=== PATIENT | female | born 1960 | race Caucasian/White ===

== ENCOUNTER 2020-09-21 16:44 | Emergency (ER) | payer SELFPAY ==
[2020-09-21 17:27] LABS: Absolute Lymphocytes (CBC) 1.2 K/uL (0.7-4.9); Basophils % 0.8 % (0-1.3); Hematocrit 41.7 % (36.0-45.0); Lymphocytes % 18.4 % (15.3-44.8); MPV 8.8 fL (7.6-11.3); RBC Red Blood Cell Count 4.44 M/uL (3.86-4.86)
[2020-09-21 17:33] LABS: Protime INR 1.02
[2020-09-21 17:50] LABS: ALT/SGPT 27 U/L (12-78); AST/SGOT 23 U/L (15-37); Albumin 4.2 g/dL (3.4-5.0); Alkaline Phosphatase 98 U/L (45-117); BUN Blood Urea Nitrogen 12 mg/dL (7-18); Bicarbonate 22 mmol/L (21-32); Bilirubin Direct 0.2 mg/dL (0-0.2); Bilirubin Total 0.6 mg/dL (0.2-1.0); Glucose Level 101 mg/dL (74-106); Potassium 3.4 mmol/L (3.5-5.1); Protein, Total 7.7 g/dL (6.4-8.2); Sodium Level 143 mmol/L (136-145)
[2020-09-21 17:57] LABS: Urine Blood NEGATIVE (NEG); Urine Glucose NEGATIVE (NEG); Urine Protein NEGATIVE (NEG); Urine Specific Gravity 1.015 (1.005-1.030)
[2020-09-21 18:02] LABS: Barbiturates NEGATIVE (NEGATIVE); Benzodiazepines NEGATIVE (NEGATIVE); Cocaine NEGATIVE (NEGATIVE); METHAMPHETAM NEGATIVE (NEGATIVE); Methadone NEGATIVE (NEGATIVE); Opiates NEGATIVE (NEGATIVE); Phencyclidine NEGATIVE (NEGATIVE); THC Cannibis NEGATIVE (NEGATIVE)
[2020-09-21] MEDS ORDERED: NA CHLORIDE 0.9% 1,000 ML ONE (18:23)
--- NOTE | 2020-09-21 18:27 | RAD REPORT ---
EXAM DESCRIPTION: CT - Head Brain Wo Cont - 09/21/2020 6:19 pm CLINICAL HISTORY: AMS, hallucinations COMPARISON: <Comparisons> TECHNIQUE: Axial 5 mm thick images of the head were obtained without IV contrast. All CT scans are performed using dose optimization technique as appropriate and may include automated exposure control or mA/KV adjustment according to patient size. FINDINGS: No intracranial hemorrhage, mass, edema or shift of mid-line structures. No acute infarcti on changes seen. No abnormal extra-axial fluid collections. Ventricles are normal. Mastoid air cells and visualized portions of the paranasal sinuses are clear. No acute bony findings. IMPRESSION: Negative non-contrast CT head examination.
[2020-09-21] MEDS ORDERED: HALOPERIDOL LACT 5 MG/ML INJ ONE (18:56)
[2020-09-21] MEDS ORDERED: LORazepam 2 MG/ML VIAL ONE (21:04)
[2020-09-22] MEDS ORDERED: LORazepam 2 MG/ML VIAL ONE (03:36)
--- NOTE | 2020-09-22 06:30 | EDPHYS ---
Physician Documentation [facility] Name: Rosanna Mg Age: 60 yrs Sex: Female : 1960 Arrival Date: 09/21/2020 Time: 16:53 Bed 15 Private MD: ED Physician Rafael Kathleen HPI: 09/21 16:54 This 60 yrs old Female presents to ER via Unassigned with complaints of rn Hallucination. 16:54 The patient presents to the emergency department with homicidal ideation, paranoia, rn psychosis, suicide ideation. Onset: The symptoms/episode began/occurred at an unknown time. Severity of symptoms: At their worst the symptoms were moderate in the emergency department the symptoms are unchanged. It is unknown whether or not the patient has had similar symptoms in the past. The patient has not recently seen a physician. Per EMS and mental health deputy report, patient walking outside in rain today, not wanting to talk to anybody, reported hallucinations with command hallucinations to kill "old people" and to kill herself. Bystander reported hx of bipolar disorder and schizophrenia but has never seen her act this bad. . Historical: - Allergies: 20:08 No Known Allergies; rr5 - Home Meds: 20:08 Propranolol Oral [Active]; quetiapine oral oral [Active]; levothyroxine oral [Active]; rr5 lamotrigine oral oral [Active]; Acyclovir Oral [Active]; - PMHx: 20:08 Bipolar disorder; rr5 - Immunization history:: Adult Immunizations unknown. - Social history:: Smoking status: unknown. - Family history:: not pertinent. - Hospitalizations: : No recent hospitalization is reported. ROS: 16:54 Constitutional: Negative for fever, chills, and weight loss, Eyes: Negative for injury, rn pain, redness, and discharge, Neck: Negative for injury, pain, and swelling, Cardiovascular: Negative for chest pain, palpitations, and edema, Respiratory: Negative for shortness of breath, cough, wheezing, and pleuritic chest pain, Abdomen/GI: Negative for abdominal pain, nausea, vomiting, diarrhea, and constipation, Back: Negative for injury and pain, MS/Extremity: Negative for injury and deformity, Skin: Negative for injury, rash, and discoloration, Neuro: Negative for headache, weakness, numbness, tingling, and seizure, Psych: Negative for depression, anxiety, + suicidal ideation and homicidal ideation, + command auditory hallucinations and paranoia Exam: 16:54 Constitutional: This is a well developed, well nourished patient who is awake, alert, rn + psychomotor agitation Head/Face: Normocephalic, atraumatic. Eyes: Pupils equal round and reactive to light, extra-ocular motions intact. Lids and lashes normal. Conjunctiva and sclera are non-icteric and not injected. Cornea within normal limits. Periorbital areas with no swelling, redness, or edema. ENT: dry MM Neck: Trachea midline, no masses palpated, and no cervical lymphadenopathy. Supple, full range of motion without nuchal rigidity, or vertebral point tenderness. No Meningismus. Cardiovascular: Regular rate and rhythm. No pulse deficits. Respiratory: No increased work of breathing, no retractions or nasal flaring. Abdomen/GI: Soft, non-tender Skin: Warm, dry MS/ Extremity: Pulses equal, no cyanosis. Neurovascular intact. Full, normal range of motion. Equal circumference. Neuro: Awake and alert, GCS 15, oriented to person, place, time, and situation. Cranial nerves II-XII grossly intact. Motor strength 5/5 in all extremities. Sensory grossly intact. Cerebellar exam normal. Psych: Awake, alert, fast speech, clear but jumps from idea to idea, somewhat redirectible, seems agitated. Vital Signs: 16:45 BP 118 / 80; Pulse 78; Resp 16; Temp 99.8(O); Pulse Ox 96% on R/A; Pain 0/10; vg1 19:00 BP 126 / 69 LA (auto/lg); Pulse 88 MON; Resp 22 S; Temp 99.0(O); Pulse Ox 100% on R/A; eb1 Pain 0/10; 20:00 BP 126 / 58 LA (auto/lg); Pulse 89 MON; Resp 20 S; Temp 98.0(O); Pulse Ox 98% on R/A; eb1 Pain 0/10; 22:00 BP 99 / 59 LA Supine (auto/lg); Pulse 90 MON; Resp 16 S; Temp 97.7(O); Pulse Ox 97% on eb1 R/A; Pain 0/10; 09/22 00:00 BP 127 / 69 LA Supine (auto/lg); Pulse 103 MON; Resp 16 S; Temp 97.8(TE); Pulse Ox 98% eb1 on R/A; Pain 0/10; 02:00 BP 126 / 88 LA Supine (auto/lg); Pulse 100 MON; Resp 20 S; Temp 98.1(T); Pulse Ox 98% eb1 on R/A; Pain 0/10; 03:32 BP 122 / 71; Pulse 105; Resp 16; Pulse Ox 99% ; rr5 04:00 BP 122 / 71 LA Supine (auto/lg); Pulse 91 MON; Resp 20 S; Pulse Ox 98% on R/A; Pain eb1 0/10; 10:04 BP 97 / 63; Pulse 96; Resp 17; Temp 98.0(TE); Pulse Ox 95% on R/A; mh5 14:38 BP 108 / 55; Pulse 97; Resp 18; Temp 98.2(O); Pulse Ox 95% on R/A; mh5 17:41 BP 102 / 60; Pulse 89; Resp 17; Temp 98.8(TE); Pulse Ox 95% on R/A; mh5 18:30 BP 100 / 58; Pulse 97; Resp 17; Temp 97.1(O); Pulse Ox 95% on R/A; mh5 09/23 02:50 BP 105 / 70; Pulse 90; Resp 16; Temp 97.8; Pulse Ox 99% ; rr5 06:00 BP 111 / 61; Pulse 90; Resp 18; Temp 98.5(O); Pulse Ox 99% on R/A; lp1 MDM: 09/21 16:53 Patient medically screened. rn 17:03 ED course: Will medically clear patient, has hx of psychiatric issues but report states rn hasn't been seen like this before. If no cause of delirium found, will obtain BRANDON and transfer for psychiatric facility. . 18:44 Differential diagnosis: psychosis secondary to non-compliance, delirium, schizophrenia, rn paranoia. Data reviewed: vital signs, nurses notes, lab test result(s), EKG, radiologic studies. ED course: Pt medically cleared, paging [facility] for evaluation. Pt more agitated at this time, haldol IM ordered and just given. Pt was trying to get out of bed and walking around room with pants and underwear half-down her legs. . 18:46 Transition of care: After a detail discussion of the patient's case, care is rn transferred to Jarad Cortes MD. 09/22 06:28 ED course: [facility] Psych gasateria attendant recommended inpatient psychiatric care. Patient mh7 resting comfortably, NAD, VSS.. 09/23 05:16 ED course: Resting comfortably, NAD, VSS. Very cooperative with staff.. mh7 12:20 ED course: Pt reevaluated by [facility], no longer endorses suicidal rn ideation or homicidal ideation, deemed safe for DC home by [facility], patient has been calm, stable vitals, and denies suicidal/homicidal ideation. Will dc home in care of family. . 09/21 16:54 Order name: Acetaminophen; Complete Time: 18:05 09/21 16:54 Order name: Basic Metabolic Panel; Complete Time: 18:05 09/21 16:54 Order name: CBC with Diff; Complete Time: 17:37 09/21 16:54 Order name: ETOH Level; Complete Time: 18:05 rn 09/21 16:54 Order name: Hepatic Function; Complete Time: 18:05 09/21 16:54 Order name: PT-INR; Complete Time: 17:37 rn 09/21 16:54 Order name: Ptt, Activated; Complete Time: 17:37 rn 09/21 16:54 Order name: Salicylate; Complete Time: 18:05 rn 09/21 16:54 Order name: Urine Drug Screen; Complete Time: 18:05 09/21 16:54 Order name: CT Head Brain wo Cont; Complete Time: 18:35 rn 09/21 16:54 Order name: AMMONIA; Complete Time: 18:05 rn 09/21 17:54 Order name: Urine Dipstick--Ancillary (enter results); Complete Time: 18:05 eb 09/21 23:37 Order name: SARS-COV-2 RT PCR; Complete Time: 07:26 EDMS 09/21 16:54 Order name: EKG; Complete Time: 16:54 rn 09/21 16:54 Order name: EKG - Nurse/Tech; Complete Time: 17:34 rn 09/21 16:54 Order name: IV Saline Lock; Complete Time: 17:19 rn 09/21 16:54 Order name: Labs collected and sent; Complete Time: 17:19 rn 09/21 16:54 Order name: Urine Dipstick-Ancillary (obtain specimen); Complete Time: 17:52 09/22 08:47 Order name: Diet Regular; Complete Time: 08:47 [facility] 09/22 11:50 Order name: Diet Regular; Complete Time: 11:52 [facility] 09/22 16:39 Order name: Diet Regular; Complete Time: 16:40 [facility] 09/23 06:54 Order name: Diet Regular; Complete Time: 06:55 [facility] 09/23 12:05 Order name: Diet Regular; Complete Time: 12:05 [facility] Administered Medications: 09/21 18:11 Drug: NS 0.9% 1000 ml Route: IV; Rate: 1000 ml; Site: right antecubital; ll1 19:30 Follow up: Response: No adverse reaction; IV Status: Completed infusion; IV Intake: rr5 1000ml 18:46 Drug: HALdol (as decanoate) 5 mg Route: IM; Site: left gluteus; ll1 19:00 Follow up: Response: No adverse reaction rr5 21:04 Drug: Ativan 1 mg Route: IVP; Site: right forearm; rr5 22:10 Follow up: Response: No adverse reaction 5 09/22 03:31 Drug: Ativan 1 mg Route: IVP; Site: right antecubital; rr5 06:33 Follow up: Response: No adverse reaction rr5 09/23 02:50 Drug: Tylenol 1000 mg Route: PO; rr5 04:06 Follow up: Response: No adverse reaction rr5 Disposition: 09/23/20 12:21 Discharged to Home. Impression: Coronavirus infection, unspecified, Altered mental status, unspecified. - Condition is Stable. - Discharge Instructions: Confusion, COVID-19. - Medication Reconciliation Form, Thank You Letter, Antibiotic Education, Prescription Opioid Use form. - Follow up: Private Physician; When: As needed; Reason: Recheck today's complaints, Re-evaluation by your physician. - Problem is new. - Symptoms have improved. Signatures: Dispatcher [employer] EDRafael Matute MD MD rn Roque, Raymond, RN RN rr5 Josie Rosario RN RN 1 Jarad Cortes MD MD 7 Aarti Aquino RN RN zb Corrections: (The following items were deleted from the chart) 12:09/22 06:29 09/22/2020 06:29 Transfer ordered to Other Acute Care Facility. Diagnosis rn is Psychosis; Homicidal Ideation; Suicidal Ideation. Reason for transfer: Higher level of care. Accepting physician is Psychiatry. Condition is Stable. Problem is an acute exacerbation. Symptoms are unchanged. [facility] 09/23 13:49 12:09/23/2020 12:21 Discharged to Home. Impression: Coronavirus infection, zb unspecified; Altered mental status, unspecified. Condition is Stable. Forms are Medication Reconciliation Form, Thank You Letter, Antibiotic Education, Prescription Opioid Use. Follow up: Private Physician; When: As needed; Reason: Recheck today's complaints, Re-evaluation by your physician. Problem is new. Symptoms have improved. rn
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
[2020-09-23] MEDS ORDERED: ACETAMINOPHEN 500 MG TAB ONE (02:20)
--- NOTE | 2020-09-23 07:36 | EKG ---
Test Date: 2020-09-21 Test Time: 17:32:28 [employer]: SRIDHAR MEASUREMENT RESULTS: Intervals: Rate: 80 AR: 150 QRSD: 78 QT: 408 QTc: 470 Rolla: P: 51 AR: 150 QRS: 35 T: 257 INTERPRETIVE STATEMENTS: Sinus rhythm with premature supraventricular complexes Cannot rule out Anterior infarct, age undetermined Abnormal ECG No previous ECG available for comparison Electronically Signed On 09-23-20 07:34:35 COLLEGE AND CAREER COUNSELOR by Slick Hermosillo
[2020-09-24 22:37] VITALS: O2SAT 99
[2020-09-24 22:38] VITALS: BP 111/61; TEMP 98.5
== END 2020-09-23 13:49 | disposition home or self-care (01) ==
LOC: ER 16:44
DX: U07.1 COVID-19 (principal); F31.9 Bipolar disorder, unspecified
CPT/HCPCS: 36415; 70450; 80048; 80076; 80307; 80320; 80329; 81003; 82140; 85025; 85610; 85730; 93005; 96372; 99285; J1630; J7030; U0003

== ENCOUNTER 2020-09-30 02:57 | Emergency (ER) | payer SELFPAY ==
[2020-09-30] MEDS ORDERED: LORAZEPAM 1 MG TABLET ONE (04:00)
[2020-09-30] MEDS ORDERED: HALOPERIDOL LACT 5 MG/ML INJ ONE (04:01)
--- NOTE | 2020-09-30 04:27 | EDPHYS ---
Physician Documentation [facility] Name: Rosanna Mg Age: 60 yrs Sex: Female : 1960 Arrival Date: 09/30/2020 Time: 02:58 Bed 18 Private MD: ED Physician Alexandro Clayton HPI: 09/30 06:12 This 60 yrs old Female presents to ER via Ambulatory with complaints of Psych tw4 Problem. 06:12 The patient presents to the emergency department with psychosis. Past psychiatric tw4 history: Prior diagnosis: bipolar disorder, Psychiatric medications include: Serzone. Associated signs and symptoms: The patient has no apparent associated signs or symptoms. Severity of symptoms: At their worst the symptoms were moderate in the emergency department the symptoms are unchanged. The patient has experienced a previous episode, last week. Historical: - Home Meds: 03:24 lamotrigine Oral [Active]; Acyclovir Oral [Active]; levothyroxine oral [Active]; dm5 Propranolol Oral [Active]; quetiapine Oral [Active]; - PMHx: 03:24 Bipolar disorder; dm5 - Immunization history:: Adult Immunizations up to date. - Social history:: Smoking status: unknown. ROS: 06:12 Constitutional: Negative for fever, chills, and weight loss, Eyes: Negative for injury, tw4 pain, redness, and discharge, Cardiovascular: Negative for chest pain, palpitations, and edema, Respiratory: Negative for shortness of breath, cough, wheezing, and pleuritic chest pain, Abdomen/GI: Negative for abdominal pain, nausea, vomiting, diarrhea, and constipation, Back: Negative for injury and pain, MS/Extremity: Negative for injury and deformity, Skin: Negative for injury, rash, and discoloration, Neuro: Negative for headache, weakness, numbness, tingling, and seizure. 06:12 Psych: Positive for judson. Exam: 06:12 Constitutional: This is a well developed, well nourished patient who is awake, alert, tw4 and in no acute distress. Head/Face: Normocephalic, atraumatic. Chest/axilla: Normal chest wall appearance and motion. Nontender with no deformity. No lesions are appreciated. Cardiovascular: Regular rate and rhythm with a normal S1 and S2. No gallops, murmurs, or rubs. Normal PMI, no JVD. No pulse deficits. Respiratory: Lungs have equal breath sounds bilaterally, clear to auscultation and percussion. No rales, rhonchi or wheezes noted. No increased work of breathing, no retractions or nasal flaring. Abdomen/GI: Soft, non-tender, with normal bowel sounds. No distension or tympany. No guarding or rebound. No evidence of tenderness throughout. Back: No spinal tenderness. No costovertebral tenderness. Full range of motion. Skin: Warm, dry with normal turgor. Normal color with no rashes, no lesions, and no evidence of cellulitis. MS/ Extremity: Pulses equal, no cyanosis. Neurovascular intact. Full, normal range of motion. 06:12 Psych: Behavior/mood is pleasant, cooperative, Affect is flat, Oriented to person, place, time, Patient has no thoughts/intents to harm self or others. Judgement / Insight is normal. Delusions/hallucinations are not present. Vital Signs: 04:05 BP 104 / 86; Pulse 92; Resp 22; Temp 98.4; Pulse Ox 98% on R/A; ll2 MDM: 03:01 Patient medically screened. tw4 06:12 Differential diagnosis: drug withdrawal. acute psychotic break. Data reviewed: vital tw4 signs, nurses notes. Data interpreted: Pulse oximetry: Interpretation: normal. Counseling: I had a detailed discussion with the patient and/or guardian regarding: the historical points, exam findings, and any diagnostic results supporting the discharge/admit diagnosis. Medication response: haldol. Special discussion: I discussed with the patient/guardian in detail that at this point there is no indication for admission to the hospital. It is understood, however, that if the symptoms persist or worsen the patient needs to return immediately for re-evaluation. Administered Medications: 03:52 Drug: HALdol 5 mg Route: IVP; Site: Other; ll2 04:38 Follow up: Response: No adverse reaction ll2 03:52 Drug: Ativan 1 mg Route: PO; ll2 04:38 Follow up: Response: No adverse reaction ll2 Disposition: 09/30/20 04:26 Discharged to Home. Impression: Unspecified psychosis not due to a substance or known physiological condition. - Condition is Stable. - Discharge Instructions: Psychosis. - Medication Reconciliation Form, Thank You Letter, Antibiotic Education, Prescription Opioid Use form. - Follow up: Private Physician; When: Upon discharge from the Emergency Department; Reason: Recheck today's complaints, Continuance of care, Re-evaluation by your physician. - Problem is new. - Symptoms have improved. Signatures: Lisset Mattson, RN RN dm5 Alexandro Clayton MD MD tw4 Shauna Medina RN RN ll2 Corrections: (The following items were deleted from the chart) 04:38 04:26 09/30/2020 04:26 Discharged to Home. Impression: Unspecified psychosis not due to ll2 a substance or known physiological condition. Condition is Stable. Forms are Medication Reconciliation Form, Thank You Letter, Antibiotic Education, Prescription Opioid Use. Follow up: Private Physician; When: Upon discharge from the Emergency Department; Reason: Recheck today's complaints, Continuance of care, Re-evaluation by your physician. Problem is new. Symptoms have improved. tw4
--- NOTE | 2020-09-30 04:27 | ER ---
Nurse's Notes [facility] Name: Rosanna Mg Age: 60 yrs Sex: Female : 1960 Arrival Date: 09/30/2020 Time: 02:58 Bed 18 Private MD: Diagnosis: Unspecified psychosis not due to a substance or known physiological condition Presentation: 09/30 03:18 Chief complaint: Spouse and/or significant other states: Pt is bipolar and seems to be dm5 going into a manic phase. This is a cycle that she goes through. Pt is COVID positive. Pt was seen here recently and per significant other we were able to "level her out" some so that she could hold a conversation and would not pace around the house. Coronavirus screen: Client reports previous positive COVID test result. Ebola Screen: Patient negative for fever greater than or equal to 101.5 degrees Fahrenheit, and additional compatible Ebola Virus Disease symptoms Patient denies exposure to infectious person. Patient denies travel to an Ebola-affected area in the 21 days before illness onset. No symptoms or risks identified at this time. Initial Sepsis Screen:. Risk Assessment: Do you want to hurt yourself or someone else? Patient reports no desire to harm self or others. Onset of symptoms was September 22, 2020. 03:18 Method Of Arrival: Ambulatory dm5 03:18 Acuity: JEANNIE 3 dm5 04:07 Initial Sepsis Screen: Does the patient meet any 2 criteria? No. Patient's initial ll2 sepsis screen is negative. Does the patient have a suspected source of infection? No. Patient's initial sepsis screen is negative. Historical: - Home Meds: 03:24 lamotrigine Oral [Active]; Acyclovir Oral [Active]; levothyroxine oral [Active]; dm5 Propranolol Oral [Active]; quetiapine Oral [Active]; - PMHx: 03:24 Bipolar disorder; dm5 - Immunization history:: Adult Immunizations up to date. - Social history:: Smoking status: unknown. Screenin:58 Abuse screen: Denies threats or abuse. Nutritional screening: No deficits noted. ll2 Tuberculosis screening: No symptoms or risk factors identified. Fall Risk None identified. Assessment: 03:15 General: Appears uncomfortable, Behavior is anxious, restless. Pain: Denies pain. ll2 Neuro: Level of Consciousness is awake, alert, confused. Cardiovascular: Patient's skin is warm and dry. Respiratory: Airway is patent Respiratory effort is even, unlabored, Respiratory pattern is regular, symmetrical. GI: No signs and/or symptoms were reported involving the gastrointestinal system. : No signs and/or symptoms were reported regarding the genitourinary system. EENT: No signs and/or symptoms were reported regarding the EENT system. Derm: Skin is intact, is healthy with good turgor, Skin is pink, warm \\T\\ dry. Musculoskeletal: Circulation, motion, and sensation intact. Range of motion: intact in all extremities. 04:07 Reassessment: Patient and/or family updated on plan of care and expected duration. Pain ll2 level reassessed. Patient is alert, oriented x 3, equal unlabored respirations, skin warm/dry/pink. 04:36 Reassessment: Patient and/or family updated on plan of care and expected duration. Pain ll2 level reassessed. Patient is alert, oriented x 3, equal unlabored respirations, skin warm/dry/pink. Psych: 04:06 Subjective: Patient's mood is irritable. Objective: Patient is uncooperative, Speech is ll2 pressured. Interventions: instructed not to remove belongings at this time. adult with pt. Suicide Risk Assessment: Sad Person Scale: Sex of patient: Female: Score 0 points. Safety Checks: Safety Checks: Visitors are present. family member denies. Vital Signs: 04:05 BP 104 / 86; Pulse 92; Resp 22; Temp 98.4; Pulse Ox 98% on R/A; ll2 ED Course: 02:58 Patient arrived in ED. am2 03:01 Alexandro Clayton MD is Attending Physician. tw4 03:22 Triage completed. dm5 03:41 Shauna Medina, FRITZ is Primary Nurse. ll2 03:58 Patient has correct armband on for positive identification. Bed in low position. Call ll2 light in reach. Adult w/ patient. 04:05 No provider procedures requiring assistance completed. ll2 04:07 Arm band placed on right wrist. ll2 04:38 Patient did not have IV access during this emergency room visit. ll2 Administered Medications: 03:52 Drug: HALdol 5 mg Route: IVP; Site: Other; ll2 04:38 Follow up: Response: No adverse reaction ll2 03:52 Drug: Ativan 1 mg Route: PO; ll2 04:38 Follow up: Response: No adverse reaction ll2 Outcome: 04:26 Discharge ordered by . tw4 04:37 Discharged to home ambulatory. ll2 04:37 Condition: stable 04:37 Discharge instructions given to patient, family, Instructed on discharge instructions, follow up and referral plans. Demonstrated understanding of instructions, follow-up care. 04:38 Patient left the ED. ll2 Signatures: Lisset Mattson, RN RN dm5 Gail Gonzalez Terrence, MD MD tw4 Shauna Medina RN RN ll2
[2020-09-30 04:42] VITALS: BP 104/86; TEMP 98.4; O2SAT 98
== END 2020-09-30 04:38 | disposition home or self-care (01) ==
LOC: ER 02:57
DX: F29 Unspecified psychosis not due to a substance or known physiological condition (principal); F31.9 Bipolar disorder, unspecified
CPT/HCPCS: 96374; 99283; J1630

== ENCOUNTER 2022-05-17 13:14 | Emergency (ER) | payer BC, OTHER, SELFPAY ==
--- NOTE | 2022-05-17 15:45 | EDPHYS ---
Physician Documentation [facility] Name: Rosanna Mg Age: 62 yrs Sex: Female : 1960 Arrival Date: 05/17/2022 Time: 13:18 Bed 17 Private MD: MARK Physician Jarad Cortes HPI: 05/17 15:35 This 62 yrs old Female presents to ER via Ambulatory with complaints of Psych ariel Problem. Historical: - Allergies: 15:04 No Known Allergies; kb3 - Home Meds: 15:04 Acyclovir Oral [Active]; lamotrigine Oral [Active]; levothyroxine oral [Active]; kb3 trazodone 100 mg Oral tab 1 tab once daily [Active]; Klonopin 1 mg Oral tab 1 tab 3 times per day [Active]; - PMHx: 15:04 Bipolar disorder; Hypothyroidism; kb3 - Immunization history:: Adult Immunizations up to date, Client reports receiving the 2nd dose of the Covid vaccine, Last tetanus immunization: unknown. - Social history:: Smoking status: Patient denies any tobacco usage or history of. Patient/guardian denies using alcohol, street drugs. ROS: 15:37 Constitutional: Negative for fever, chills, and weight loss, Eyes: Negative for injury, ariel pain, redness, and discharge, ENT: Negative for injury, pain, and discharge, Neck: Negative for injury, pain, and swelling, Cardiovascular: Negative for chest pain, palpitations, and edema, Respiratory: Negative for shortness of breath, cough, wheezing, and pleuritic chest pain, Abdomen/GI: Negative for abdominal pain, nausea, vomiting, diarrhea, and constipation, Back: Negative for injury and pain, : Negative for injury, bleeding, discharge, and swelling, MS/Extremity: Negative for injury and deformity, Skin: Negative for injury, rash, and discoloration, Neuro: Negative for headache, weakness, numbness, tingling, and seizure, Allergy/Immunology: Negative for hives, rash, and allergies, Endocrine: Negative for neck swelling, polydipsia, polyuria, polyphagia, and marked weight changes, Hematologic/Lymphatic: Negative for swollen nodes, abnormal bleeding, and unusual bruising. 15:37 Psych: Positive for depression. Exam: 15:37 Constitutional: This is a well developed, well nourished patient who is awake, alert, ariel and in no acute distress. Head/Face: Normocephalic, atraumatic. Eyes: Pupils equal round and reactive to light, extra-ocular motions intact. Lids and lashes normal. Conjunctiva and sclera are non-icteric and not injected. Cornea within normal limits. Periorbital areas with no swelling, redness, or edema. ENT: Nares patent. No nasal discharge, no septal abnormalities noted. Tympanic membranes are normal and external auditory canals are clear. Oropharynx with no redness, swelling, or masses, exudates, or evidence of obstruction, uvula midline. Mucous membranes moist. Neck: Trachea midline, no thyromegaly or masses palpated, and no cervical lymphadenopathy. Supple, full range of motion without nuchal rigidity, or vertebral point tenderness. No Meningismus. Chest/axilla: Normal chest wall appearance and motion. Nontender with no deformity. No lesions are appreciated. Cardiovascular: Regular rate and rhythm with a normal S1 and S2. No gallops, murmurs, or rubs. Normal PMI, no JVD. No pulse deficits. Respiratory: Lungs have equal breath sounds bilaterally, clear to auscultation and percussion. No rales, rhonchi or wheezes noted. No increased work of breathing, no retractions or nasal flaring. Abdomen/GI: Soft, non-tender, with normal bowel sounds. No distension or tympany. No guarding or rebound. No evidence of tenderness throughout. Back: No spinal tenderness. No costovertebral tenderness. Full range of motion. Skin: Warm, dry with normal turgor. Normal color with no rashes, no lesions, and no evidence of cellulitis. MS/ Extremity: Pulses equal, no cyanosis. Neurovascular intact. Full, normal range of motion. 15:37 Neuro: Orientation: to person, Not oriented to place, time, situation, Mentation: slow to respond, confused, Memory: unable to test, Cranial nerves: grossly normal, is grossly normal based on the patient's age, no acute changes, Cerebellar function: is grossly normal, is grossly normal based on the patient's age, no acute changes, Motor: moves all fours, strength is normal, Sensation: no obvious gross deficits, appropriate no acute changes, Gait: not tested. Deep tendon reflexes are 2+ (normal) in the , Babinski testing is normal, seizure activity, is not displayed by the patient. 15:59 ECG was reviewed by the Attending Physician. [facility] Vital Signs: 15:02 BP 153 / 82; Pulse 97; Resp 20; Temp 98.1; Pulse Ox 100% ; Weight 90.72 kg; Height 5 kb3 ft. 7 in. (170.18 cm); Pain 0/10; 16:22 BP 145 / 87; Pulse 94; Resp 18; Pulse Ox 97% on R/A; bm7 17:47 BP 134 / 78; Pulse 89; Resp 16; Pulse Ox 97% on 1.5 lpm NC; bm7 18:11 BP 135 / 79; Pulse 93; Resp 16; Pulse Ox 97% on R/A; Pain 0/10; bm7 19:01 BP 136 / 80; Pulse 78; Resp 16; Pulse Ox 98% on R/A; Pain 0/10; bm7 19:50 BP 137 / 79; Pulse 94; Resp 16; Pulse Ox 98% on R/A; Pain 0/10; bm7 22:05 BP 132 / 79; Pulse 70; Resp 16; Pulse Ox 98% on R/A; Pain 0/10; bm7 22:28 BP 132 / 79; Pulse 80; Resp 16; Pulse Ox 98% on R/A; Pain 0/10; bm7 23:21 BP 140 / 79; Pulse 82; Resp 16; Pulse Ox 96% on R/A; Pain 0/10; bm7 15:02 Body Mass Index 31.32 (90.72 kg, 170.18 cm) kb3 MDM: 13:24 Patient medically screened. [facility] 15:39 Differential diagnosis: acute psychotic break, depression. Data reviewed: vital signs, [facility] nurses notes, lab test result(s), EKG. Data interpreted: quality assurance monitor: rate is 97 beats/min, rhythm is regular. Test interpretation: by ED physician or midlevel provider: ECG. Counseling: I had a detailed discussion with the patient and/or guardian regarding: the historical points, exam findings, and any diagnostic results supporting the discharge/admit diagnosis, lab results, radiology results, the need to transfer to another facility, for higher level of care, [facility] does not immediately have the required specialist. 05/17 13:24 Order name: Acetaminophen; Complete Time: 16:55 [facility] 05/17 13:24 Order name: Basic Metabolic Panel; Complete Time: 16:55 [facility] 05/17 13:24 Order name: CBC with Diff; Complete Time: 16:55 [facility] 05/17 13:24 Order name: ETOH Level; Complete Time: 16:55 [facility] 05/17 13:24 Order name: Hepatic Function; Complete Time: 16:55 [facility] 05/17 13:24 Order name: PT-INR; Complete Time: 16:55 [facility] 05/17 13:24 Order name: Ptt, Activated; Complete Time: 16:55 [facility] 05/17 13:24 Order name: Salicylate; Complete Time: 16:55 [facility] 05/17 13:24 Order name: Urine Drug Screen; Complete Time: 16:55 [facility] 05/17 15:34 Order name: SARS RAPID; Complete Time: 16:55 [facility] 05/17 15:34 Order name: CT Head Brain wo Cont; Complete Time: 16:55 [facility] 05/17 15:35 Order name: TSH; Complete Time: 16:55 [facility] 05/17 16:00 Order name: Urine Dipstick-Ancillary; Complete Time: 16:55 [facility] 05/17 13:24 Order name: EKG; Complete Time: 13:26 [facility] 05/17 13:24 Order name: EKG - Nurse/Tech; Complete Time: 15:59 [facility] 05/17 13:24 Order name: IV Saline Lock; Complete Time: 15:59 [facility] 05/17 13:24 Order name: Labs collected and sent; Complete Time: 15:59 [facility] 05/17 13:24 Order name: Suicide Precautions; Complete Time: 15:59 [facility] 05/17 13:24 Order name: Suicide Screening ([place]); Complete Time: 15:59 [facility] 05/17 13:24 Order name: Urine Dipstick-Ancillary (obtain specimen); Complete Time: 15:59 [facility] EC:59 Rate is 94 beats/min. Rhythm is regular. QRS [place] is Normal. VA interval is normal. QRS ariel interval is normal. QT interval is normal. No Q waves. T waves are Normal. No ST changes noted. Clinical impression: NSR w/ Non-specific ST/T Changes and No evidence of ischemia. Interpreted by me. Reviewed by me. Administered Medications: 16:22 Drug: NS 0.9% 500 ml Route: IV; Rate: bolus; Site: right antecubital; 7 16:50 Follow up: IV Status: Completed infusion; IV Intake: 500ml [facility] 16:22 Drug: Thiamine 100 mg Route: IV; Rate: per protocol; Site: right antecubital; [facility] 16:50 Follow up: IV Status: Completed infusion bm7 Disposition Summary: 05/17/22 15:45 Transfer Ordered Transfer Location: Psych Facility ariel Reason: Higher level of care ariel Condition: Fair ariel Problem: new ariel Symptoms: have improved ariel Accepting Physician: to psych(05/18/22 00:24) hb Diagnosis - Bipolar disorder, unspecified ariel - Bipolar disorder, current episode mixed, severe, with psychotic features ariel - Altered mental status, unspecified ariel Forms: - Medication Reconciliation Form ariel - SBAR form ariel Signatures: Dispatcher [employer] EDMS Lee Singleton MD MD cha Waters, Shelly, MECHANICAL DESIGN DRAFTER-C MECHANICAL DESIGN DRAFTER-Csnw Mary Ellen Mathur RN RN Hayde Mariscal RN RN 7 Padma Carlton RN RN kb3 Corrections: (The following items were deleted from the chart) 05/18 00:24 05/17 15:45 to psych ariel hb
--- NOTE | 2022-05-17 15:45 | ER ---
Nurse's Notes [facility] Name: Rosanna Mg Age: 62 yrs Sex: Female : 1960 Arrival Date: 05/17/2022 Time: 13:18 Bed 17 Private MD: Diagnosis: Bipolar disorder, unspecified;Bipolar disorder, current episode mixed, severe, with psychotic features;Altered mental status, unspecified Presentation: 05/17 15:02 Chief complaint: Spouse and/or significant other states: Reports pt is experiencing kb3 psychotic episode, confused/disoriented, paranoid since Wednesday with history of bipolar disorder. Coronavirus screen: Vaccine status: Patient reports receiving the 2nd dose of the covid vaccine. At this time, the client does not indicate any symptoms associated with coronavirus-19. Ebola Screen: Patient negative for fever greater than or equal to 101.5 degrees Fahrenheit, and additional compatible Ebola Virus Disease symptoms Patient denies exposure to infectious person. Patient denies travel to an Ebola-affected area in the 21 days before illness onset. Initial Sepsis Screen: Does the patient meet any 2 criteria? No. Patient's initial sepsis screen is negative. Does the patient have a suspected source of infection? No. Patient's initial sepsis screen is negative. Risk Assessment: Do you want to hurt yourself or someone else? Patient reports no desire to harm self or others. Onset of symptoms was May 14, 2022. 15:02 Method Of Arrival: Ambulatory kb3 15:02 Acuity: JEANNIE 2 kb3 Triage Assessment: 15:04 General: Appears in no apparent distress. comfortable, Behavior is calm, cooperative, kb3 flat, quiet. Pain: Denies pain. Historical: - Allergies: 15:04 No Known Allergies; kb3 - Home Meds: 15:04 Acyclovir Oral [Active]; lamotrigine Oral [Active]; levothyroxine oral [Active]; kb3 trazodone 100 mg Oral tab 1 tab once daily [Active]; Klonopin 1 mg Oral tab 1 tab 3 times per day [Active]; - PMHx: 15:04 Bipolar disorder; Hypothyroidism; kb3 - Immunization history:: Adult Immunizations up to date, Client reports receiving the 2nd dose of the Covid vaccine, Last tetanus immunization: unknown. - Social history:: Smoking status: Patient denies any tobacco usage or history of. Patient/guardian denies using alcohol, street drugs. Screenin:11 Abuse screen: Denies threats or abuse. Nutritional screening: No deficits noted. bm7 Tuberculosis screening: No symptoms or risk factors identified. Fall Risk None identified. Assessment: 16:50 Reassessment: No changes from previously documented assessment. Patient and/or family bm7 updated on plan of care and expected duration. Pain level reassessed. Patient is alert, oriented x 3, equal unlabored respirations, skin warm/dry/pink. 17:47 Reassessment: Patient and/or family updated on plan of care and expected duration. Pain bm7 level reassessed. Patient is alert, oriented x 3, equal unlabored respirations, skin warm/dry/pink. at bedside. 18:10 Reassessment: Patient and/or family updated on plan of care and expected duration. Pain bm7 level reassessed. Patient is alert, oriented x 3, equal unlabored respirations, skin warm/dry/pink. 19:02 Reassessment: left and left cell number of [phone]. bm7 19:50 Reassessment: Patient and/or family updated on plan of care and expected duration. Pain bm7 level reassessed. Patient is alert, oriented x 3, equal unlabored respirations, skin warm/dry/pink. 20:06 Reassessment: NURSE TO NURSE DONE WITH MAUREEN AT [facility]. bm7 22:05 Reassessment: Patient and/or family updated on plan of care and expected duration. Pain bm7 level reassessed. Patient is alert, oriented x 3, equal unlabored respirations, skin warm/dry/pink. 22:28 Reassessment: Patient and/or family updated on plan of care and expected duration. Pain bm7 level reassessed. Patient is alert, oriented x 3, equal unlabored respirations, skin warm/dry/pink. General: Appears in no apparent distress. comfortable, well developed, Behavior is flat, quiet. Pain: Denies pain. Neuro: Level of Consciousness is awake, alert, obeys commands, Oriented to person, place, time, situation, Dietitian Teaching are equal bilaterally Moves all extremities. Facial symmetry appears normal. Cardiovascular: No deficits noted. Respiratory: No deficits noted. GI: No deficits noted. No signs and/or symptoms were reported involving the gastrointestinal system. : No deficits noted. No signs and/or symptoms were reported regarding the genitourinary system. EENT: No deficits noted. No signs and/or symptoms were reported regarding the EENT system. Derm: No deficits noted. No signs and/or symptoms reported regarding the dermatologic system. Musculoskeletal: No deficits noted. No signs and/or symptoms reported regarding the musculoskeletal system. 23:21 Reassessment: Patient and/or family updated on plan of care and expected duration. Pain bm7 level reassessed. Patient is alert, oriented x 3, equal unlabored respirations, skin warm/dry/pink. 23:33 Reassessment: called Prosper at [phone] to inform him of transfer at [place] [id number] [facility]. Vital Signs: 15:02 BP 153 / 82; Pulse 97; Resp 20; Temp 98.1; Pulse Ox 100% ; Weight 90.72 kg; Height 5 kb3 ft. 7 in. (170.18 cm); Pain 0/10; 16:22 BP 145 / 87; Pulse 94; Resp 18; Pulse Ox 97% on R/A; bm7 17:47 BP 134 / 78; Pulse 89; Resp 16; Pulse Ox 97% on 1.5 lpm NC; bm7 18:11 BP 135 / 79; Pulse 93; Resp 16; Pulse Ox 97% on R/A; Pain 0/10; bm7 19:01 BP 136 / 80; Pulse 78; Resp 16; Pulse Ox 98% on R/A; Pain 0/10; bm7 19:50 BP 137 / 79; Pulse 94; Resp 16; Pulse Ox 98% on R/A; Pain 0/10; bm7 22:05 BP 132 / 79; Pulse 70; Resp 16; Pulse Ox 98% on R/A; Pain 0/10; bm7 22:28 BP 132 / 79; Pulse 80; Resp 16; Pulse Ox 98% on R/A; Pain 0/10; bm7 23:21 BP 140 / 79; Pulse 82; Resp 16; Pulse Ox 96% on R/A; Pain 0/10; bm7 15:02 Body Mass Index 31.32 (90.72 kg, 170.18 cm) kb3 ED Course: 13:18 Patient arrived in ED. rg4 13:24 Lee Singleton MD is Attending Physician. [facility] 15:04 Triage completed. kb3 15:04 Arm band placed on left wrist. kb3 15:09 Hayde Mariscal, RN is Primary Nurse. bm7 15:53 Initial lab(s) drawn, by me, sent to lab. Inserted saline lock: 20 gauge in right dh3 forearm, using aseptic technique. Blood collected. 16:[address] via stretcher. bm7 16:11 Patient has correct armband on for positive identification. Call light in reach. Side bm7 rails up X2. Client placed on continuous cardiac and pulse oximetry monitoring. NIBP monitoring applied. groundwater monitoring technician on. Patient is placed in psych hold. Assisted to bathroom. 16:11 Urine collected: clean catch specimen, cloudy, EKG done, by ED staff, reviewed by Lee Singleton MD COVID swab sent to lab. Inserted saline lock: 20 gauge in left forearm, using aseptic technique. Patient maintains SpO2 saturation greater than 95% on room air. 16:12 CT Head Brain wo Cont In Process Unspecified. EDMS 16:22 No apparent distress. Resting quietly. transfer Awaiting lab results. bm7 16:22 Warm blanket given. bm7 22:29 Diet: Patient given water. water encouraged and offered pt refused food and drink. bm7 fluids and food left at bedside . 22:56 [facility] [place] notified Issued BRANDON by Officer Matthew due to being Altered. wm 23:08 [facility] accepted Pt for transfer at 2308 per Leona, by Admin Justus Lomax. 23:34 Report given to [facility]. 7 23:49 Attending Physician role handed off by Lee Singleton MD [facility] 23:49 Jarad Cortes MD is Attending Physician. [facility] 05/18 00:24 No provider procedures requiring assistance completed. Patient did not have IV access hb during this emergency room visit. Administered Medications: 05/17 16:22 Drug: NS 0.9% 500 ml Route: IV; Rate: bolus; Site: right antecubital; bm7 16:50 Follow up: IV Status: Completed infusion; IV Intake: 500ml bm7 16:22 Drug: Thiamine 100 mg Route: IV; Rate: per protocol; Site: right antecubital; bm7 16:50 Follow up: IV Status: Completed infusion 7 Medication: 16:11 VIS not applicable for this client. bm7 Intake: 16:50 IV: 500ml; Total: 500ml. bm7 Outcome: 15:45 ER care complete, transfer ordered by MD. george 05/18 00:24 Patient left the ED. Signatures: Dispatcher [employer] EDLee Yang MD MD cha Baxter, Heather, RN RN Cindi Edwards 4 Yuriy, Lisa 3 Jarad Cortes MD MD 7 Hayde Mariscal, RN RN 7 Carina Rivera Kelly, FRITZ RN kb3
[2022-05-17 16:00] LABS: Urine Blood Trace-intact (Negative); Urine Glucose Negative (Negative); Urine Protein Negative (Negative); Urine Specific Gravity 1.025 (1.005-1.030)
[2022-05-17 16:05] LABS: Hematocrit 43.3 % (36.0-45.0); Lymphocytes % 29.5 % (15.3-44.8); MCV 95.3 fL (80-100); MPV 7.9 fL (7.6-11.3); RBC Red Blood Cell Count 4.54 M/uL (3.86-4.86)
[2022-05-17 16:09] LABS: Protime INR 1.05
[2022-05-17] MEDS ORDERED: THIAMINE 200 MG/2 ML INJ ONE (16:09)
[2022-05-17] MEDS ORDERED: NA CHLORIDE 0.9% 500 ML ONE (16:09)
[2022-05-17 16:19] LABS: Barbiturates NEGATIVE (NEGATIVE); Benzodiazepines NEGATIVE (NEGATIVE); Cocaine NEGATIVE (NEGATIVE); METHAMPHETAM NEGATIVE (NEGATIVE); Methadone NEGATIVE (NEGATIVE); Opiates NEGATIVE (NEGATIVE); Phencyclidine NEGATIVE (NEGATIVE); THC Cannibis NEGATIVE (NEGATIVE)
[2022-05-17 16:23] LABS: ALT/SGPT 28 U/L (12-78); AST/SGOT 27 U/L (15-37); Albumin 4.2 g/dL (3.4-5.0); Alkaline Phosphatase 91 U/L (45-117); BUN Blood Urea Nitrogen 11 mg/dL (7-18); Bicarbonate 22 mmol/L (21-32); Bilirubin Direct 0.1 mg/dL (0-0.2); Bilirubin Total 0.5 mg/dL (0.2-1.0); Glomerular Filtration Rate 63 ml/min (=/>90); Glucose Level 102 mg/dL (74-106); Potassium 3.7 mmol/L (3.5-5.1); Protein, Total 7.9 g/dL (6.4-8.2); Sodium Level 142 mmol/L (136-145)
--- NOTE | 2022-05-17 16:26 | RAD REPORT ---
EXAM DESCRIPTION: CT - Head Brain Wo Cont - 05/17/2022 4:10 pm CLINICAL HISTORY: Mental status change, unknown cause Headache, drowsiness COMPARISON: Head Brain Wo Cont dated 09/21/2020 TECHNIQUE: All CT scans are performed using dose optimization technique as appropriate and may inclu de automated exposure control or mA/KV adjustment according to patient size. FINDINGS: No intracranial hemorrhage, hydrocephalus or extra-axial fluid collection.No areas of brai n edema or evidence of midline shift. The paranasal sinuses and mastoids are clear. The calvarium is intact. IMPRESSION: No acute intracranial abnormality.
[2022-05-17 16:36] LABS: SARS-CoV-2 Antigen Rapid Res Negative (Negative)
[2022-05-18 03:55] VITALS: TEMP 98.1
[2022-05-18 04:32] VITALS: BP 140/79; O2SAT 96
--- NOTE | 2022-05-19 08:19 | EKG ---
Test Date: 2022-05-17 Test Time: 15:37:48 Assistant Family Teacher: DARRIUS MEASUREMENT RESULTS: Intervals: Rate: 94 DC: 156 QRSD: 78 QT: 362 QTc: 452 [place]: P: 40 DC: 156 QRS: -3 T: 12 INTERPRETIVE STATEMENTS: Normal sinus rhythm Cannot rule out Anterior infarct, age undetermined Abnormal ECG Compared to ECG 09/21/2020 17:32:28 Atrial premature complex(es) no longer present Myocardial infarct finding still present Electronically Signed On 05-19-22 08:11:51 CDT by Slick Hermosillo
== END 2022-05-18 00:24 ==
LOC: ER 13:14
DX: F31.64 Bipolar disorder, current episode mixed, severe, with psychotic features (principal); R41.82 Altered mental status, unspecified; E03.9 Hypothyroidism, unspecified; Z20.822 Contact with and (suspected) exposure to COVID-19
CPT/HCPCS: 96365; 93005; 85025; 80048; 36415; 80320; 80329 ×2; 85610; 80076; 85730; 84443; 81003; 80307; 70450; 99285; 87811; J3411; J7040